=== PATIENT | female | born 1955 | race Caucasian/White ===

== ENCOUNTER 2020-09-04 10:01 | Outpatient (CLI) | payer MEDICARE ==
[2020-09-04] MEDS ORDERED: ONE A DAY MVT PO (10:26)
[2020-09-04] MEDS ORDERED: METF500T17 PO (10:40)
== END 2020-09-04 23:59 | disposition home or self-care (01) ==
LOC: STAR 10:01
PROVIDERS: ATTEND Surgery
DX: Z02.9 Encounter for administrative examinations, unspecified (principal)

== ENCOUNTER 2020-09-07 12:46 | Day surgery (SDC) | payer MEDICARE ==
[2020-09-04 10:55] LABS: BASOPHILS % (AUTO) 1 % (0-1); EOSINOPHILS % (AUTO) 3 % (1-7); LYMPHOCYTES % (AUTO) 30 % (22-44); MEAN CORPUSCULAR HEMOGLOBIN 31.5 pg (27.0-34.8); MEAN CORPUSCULAR HGB CONC 34.7 g/dL (32.4-35.8); MEAN PLATELET VOLUME 9.6 fL (7.4-10.4); MONOCYTES % (AUTO) 6 % (2-9); NEUTROPHILS % (AUTO) 60 % (42-75); PLATELET COUNT 208 x10^3/uL (130-400); RED BLOOD COUNT 4.52 x10^6/uL (3.82-5.3); RED CELL DISTRIBUTION WIDTH 13.8 % (9.6-15.2)
[2020-09-04 11:05] LABS: INTERNATIONAL NORMALIZED RATIO 1.01 (0.93-1.1); PROTHROMBIN TIME 10.8 Seconds (9.6-11.5)
[2020-09-04 11:07] LABS: ALBUMIN 3.5 g/dL (3.4-5.0); ANION GAP 4 mmol/L (5-15); CHLORIDE 110 mmol/L (98-107)
[2020-09-04 11:12] LABS: ALANINE AMINOTRANSFERASE 25 U/L (12-78); ALKALINE PHOSPHATASE 98 U/L (45-117); BILIRUBIN,TOTAL 0.4 mg/dL (0.2-1.0); CREATININE 0.82 mg/dL (0.55-1.02); TOTAL PROTEIN 7.2 g/dL (6.4-8.2)
[~2020-09-07] VITALS: Ht 162.6 cm; Wt 64.5 kg
[~2020-09-07 12:46] MED LIST: METF500T17 PO; ONE A DAY MVT PO
[2020-09-07] MEDS ORDERED: IBUP-1902 PO (13:42)
[2020-09-07 13:44] VITALS: BP 130/70
[2020-09-07] MEDS ORDERED: CHLORHEXIDINE 15 ML UDC ONE (13:54)
[2020-09-07] MEDS ORDERED: LACTATED RINGERS 1,000 ML IV SCH (14:00)
[2020-09-07] MEDS ORDERED: CHLORHEXIDINE 15 ML UDC PO ONE (14:00)
[2020-09-07] MEDS ORDERED: ROPIvacaine/PF 0.5%, 30 ML ONE (16:25)
[2020-09-07] MEDS ORDERED: EPINEPHRINE 1 MG/ML, 1ML ONE (16:25)
[2020-09-07] MEDS ORDERED: BUPIVACAINE/PF 0.5% ONE (16:25)
[2020-09-07] MEDS ORDERED: FENTANYL PF 250 MCG/5ML ONE (16:25)
[2020-09-07] MEDS ORDERED: MIDAZOLAM 1 MG/ML, 2ML ONE (16:25)
[2020-09-07] MEDS ORDERED: BACITRACIN OINT 500U/GM, 15 GM ONE (16:25)
[2020-09-07] MEDS ORDERED: CEFAZOLIN 1,000 MG ONE (16:26)
[2020-09-07] MEDS ORDERED: PROPOFOL 10 MG/ML, 20ML ONE (16:26)
[2020-09-07] MEDS ORDERED: NEOSTIGMINE 1 MG/ML, 10ML ONE (16:26)
[2020-09-07] MEDS ORDERED: GLYCOPYRROLATE 0.2MG/1ML, 5ML ONE (16:26)
[2020-09-07] MEDS ORDERED: ROCURONIUM 10MG/ML,5ML ONE (16:26)
[2020-09-07] MEDS ORDERED: DEXAMETHASONE 4 MG/ML, 1ML ONE (16:26)
[2020-09-07] MEDS ORDERED: ONDANSETRON 2MG/ML, 2ML ONE (16:26)
[2020-09-07] MEDS ORDERED: morphine SULFATE 10 MG/ML, 1ML IVPush PRN (17:00)
[2020-09-07] MEDS ORDERED: LABETALOL 5MG/ML, 20ML IV PRN (17:00)
[2020-09-07] MEDS ORDERED: HALOPERIDOL 5 MG/ML IV PRN (17:00)
[2020-09-07] MEDS ORDERED: OXYcodone 5 MG/5 ML ORAL.SOL UDC PO PRN (17:00)
[2020-09-07] MEDS ORDERED: MEPERIDINE/PF 25MG/0.5ML IVPush PRN (17:00)
[2020-09-07] MEDS ORDERED: hydrALAzine 20 MG/ML, 1ML IV PRN (17:00)
[2020-09-07] MEDS ORDERED: PROMETHAZINE 25 MG/ML, 1ML IVPush PRN (17:00)
[2020-09-07] MEDS ORDERED: HYDROmorphone 1 MG/ML, 1ML INJ IVPush PRN (17:00)
[2020-09-07] MEDS ORDERED: ACETAMINOPHEN 325 MG TABLET PO PRN (17:00)
[2020-09-07] MEDS ORDERED: MINERAL OIL 10 ML VIAL MC ONE (17:33)
[2020-09-07] MEDS ORDERED: NEOSPORIN OINT, 15GM ONE (17:49)
[2020-09-07] MEDS ORDERED: HALOPERIDOL 5 MG/ML ONE (18:23)
[2020-09-07] MEDS ORDERED: FENTANYL PF 100 MCG/2ML ONE (18:31)
[2020-09-07] MEDS: FENTANYL PF 100 MCG/2ML IV PRN ×2 (18:32→18:37)
[2020-09-07] MEDS ORDERED: LABETALOL 5MG/ML, 20ML ONE (18:52)
== END 2020-09-07 19:40 | disposition home or self-care (01) ==
LOC: OUT 12:46 → EDSTATUS 16:00 → OUT 19:40
PROVIDERS: ATTEND Surgery
DX: C43.62 Malignant melanoma of left upper limb, including shoulder (principal); C77.3 Secondary and unspecified malignant neoplasm of axilla and upper limb lymph nodes; E11.9 Type 2 diabetes mellitus without complications; Z20.822 Contact with and (suspected) exposure to COVID-19; Z79.01 Long term (current) use of anticoagulants; Z79.84 Long term (current) use of oral hypoglycemic drugs; Z79.899 Other long term (current) drug therapy; Z88.5 Allergy status to narcotic agent; Z90.49 Acquired absence of other specified parts of digestive tract; Z83.3 Family history of diabetes mellitus
CPT/HCPCS: 14021; 15100; 36415; 38525; 38792; 80053; 82962; 85025; 85610; 88307; 88342; 93005; A9541; J0171; J0690; J1100; J1630; J2250; J2405; J2550; J2704; J2710; J3010; J7120; U0003; U0005; J2795

== ENCOUNTER 2020-10-03 12:13 | Day surgery (SDC) | payer MEDICARE ==
[~2020-10-03 12:13] MED LIST changes: +IBUP-1902 PO
[2020-10-03] MEDS ORDERED: ALPRazolam 1MG TAB ONE (12:31)
== END 2020-10-03 23:59 | disposition home or self-care (01) ==
LOC: OUT 12:13 → EDSTATUS 12:45 → OUT 23:59
PROVIDERS: ATTEND Surgery
DX: Z02.9 Encounter for administrative examinations, unspecified (principal)
CPT/HCPCS: 70553

== ENCOUNTER 2020-10-17 06:26 | Day surgery (SDC) | payer MEDICARE ==
[~2020-10-17] VITALS: Ht 162.6 cm; Wt 66.3 kg
[2020-10-17 07:01] VITALS: BP 173/74
[2020-10-17 07:29] VITALS: BP 153/79
[2020-10-17] MEDS ORDERED: FENTANYL PF 100 MCG/2ML ONE (08:19)
[2020-10-17] MEDS ORDERED: MIDAZOLAM 1 MG/ML, 5ML ONE (08:19)
[2020-10-17] MEDS ORDERED: GADOTERATE 7.5 MMOL/15ML SYR ONE (09:12)
== END 2020-10-17 10:15 | disposition home or self-care (01) ==
LOC: OUT 06:26
PROVIDERS: ATTEND Surgery
DX: C43.62 Malignant melanoma of left upper limb, including shoulder (principal); Z79.84 Long term (current) use of oral hypoglycemic drugs; Z79.899 Other long term (current) drug therapy; Z88.5 Allergy status to narcotic agent
CPT/HCPCS: 70553; 99156; 99157; A9575; J2250; J3010

== ENCOUNTER → 2020-10-26 | Outpatient (CLI) | payer MEDICARE | END | disposition home or self-care (01) | LOC: PETCFH 07:32 | PROVIDERS: ATTEND Surgery | DX: C43.62 Malignant melanoma of left upper limb, including shoulder (principal); J34.89 Other specified disorders of nose and nasal sinuses; I25.10 Atherosclerotic heart disease of native coronary artery without angina pectoris; K57.30 Diverticulosis of large intestine without perforation or abscess without bleeding | CPT/HCPCS: 78816; A9552 ==